=== PATIENT | male | born 1960 | race Caucasian/White ===

== ENCOUNTER → 2024-02-17 06:24 | Day surgery (SDC) | payer OTHER, SELFPAY | LOC: GI 06:24 | PROVIDERS: ATTENDING PHYSICIAN Internal Medicine | DX: K31.811 Angiodysplasia of stomach and duodenum with bleeding (principal); K31.89 Other diseases of stomach and duodenum; R10.13 Epigastric pain; R11.0 Nausea | CPT/HCPCS: 43255; 43239; 88305; 88342 ==

== ENCOUNTER → 2024-02-17 14:43 | Outpatient (REF) | payer OTHER, SELFPAY | LOC: HWRAD 14:43 | PROVIDERS: ATTENDING PHYSICIAN Internal Medicine | DX: R10.13 Epigastric pain (principal); R11.0 Nausea | CPT/HCPCS: 76700 ==

== ENCOUNTER 2024-05-02 06:19 | Day surgery (SDC) | payer OTHER, SELFPAY ==
[2024-05-02 13:26] VITALS: BMI 22.2
[2024-05-02 13:27] VITALS: BP 103/61
[2024-05-02 16:03] VITALS: BP 101/69
[2024-05-02 16:15] VITALS: BP 105/72
== END 2024-05-02 16:30 | disposition home or self-care (01) ==
LOC: GI 06:19
PROVIDERS: ATTENDING PHYSICIAN Internal Medicine Gastroenterology
DX: K83.8 Other specified diseases of biliary tract (principal)
CPT/HCPCS: 43237